=== PATIENT | female | born 1990 | race African-American/Black ===

== ENCOUNTER 2018-03-17 10:38 | Outpatient (CLI) | payer MEDICAID ==
--- NOTE | 2018-03-17 12:20 | ULT ---
SONOGRAM RIGHT BREAST LIMITED: History: Non-bloody breast discharge intermittent. FINDINGS: Sonographic evaluation of the retroareolar aspect of the left breast shows normal appearing ducts wit hout internal debris or pathologic distention. No solid or cystic masses. IMPRESSION: BIRADS category 2 - benign findings. POS: [facility]
== END 2018-03-17 10:39 | disposition home or self-care (01) ==
LOC: BICULT 10:38
PROVIDERS: ATTEND Advanced Practice Midwife
DX: N64.3 Galactorrhea not associated with childbirth (principal); N92.6 Irregular menstruation, unspecified; N64.52 Nipple discharge

== ENCOUNTER 2020-09-02 10:35 | Outpatient (CLI) | payer MEDICAID | END 2020-09-02 10:36 | disposition home or self-care (01) | LOC: BICULT 10:35 | PROVIDERS: ATTEND Nurse Practitioner Women's Health | DX: N93.9 Abnormal uterine and vaginal bleeding, unspecified (principal); N83.201 Unspecified ovarian cyst, right side | CPT/HCPCS: 76856; 93976 ==